=== PATIENT | female | born 1980 | race Two or more races ===

== ENCOUNTER 2020-05-11 05:51 | Day surgery (SDC) | payer OTHER ==
[~2020-05-11 05:51] MED LIST: AZOPT10 ML OP; LATONOPROST; SINGULAIR10 MG PO; SYNTHROID175 MCG PO; VITAMIN C100 MG PO; ZYRTEC10 M3 PO
== END 2020-05-11 12:25 | disposition home or self-care (01) ==
LOC: CIR.AMB 05:51
PROVIDERS: ATTEND Surgery Surgery of the Hand
DX: S53.31XA Traumatic rupture of right ulnar collateral ligament, initial encounter (principal); S63.418A Traumatic rupture of collateral ligament of other finger at metacarpophalangeal and interphalangeal joint, initial encounter; Z20.822 Contact with and (suspected) exposure to COVID-19